=== PATIENT | female | born 1965 | race Caucasian/White ===

== ENCOUNTER 2024-09-17 21:22 | Emergency (ER) | payer OTHER, SELFPAY ==
[2024-09-17 21:38] VITALS: BP 111/74; PULSE 88; RESP 14; TEMP 36.7; O2SAT 96; BMI 25.0
[2024-09-18] MEDS: ondansetron 2 mg/ML SDV 2 mL 4 MG IVP (00:29)
[2024-09-18] MEDS: HYDROmorphone 0.5 MG/0.5 ML INJ 1 MG IVP (00:30)
[2024-09-18 00:39] VITALS: BP 117/95; PULSE 75; RESP 16; O2SAT 95
--- NOTE | 2024-09-18 01:19 | ED_ITS ---
HPI - Extremity Problem General: Chief complaint: Extremity Problem,Nontraumatic Stated complaint: post surgy yesterday, bleeding now doc sent Time Seen by Provider: 09/17/24 23:41 History of Present Illness: Nayeli presents to the emergency department for post-operative complications following surgery on her ankle. The patient reports that she underwent ankle surgery on evening, performed by Dr. Solitario, which involved pinning and plating. She was discharged home the same night. By friday, she began experiencing severe pain in both sides of her heels. The pain is described as burning and rubbing, causing significant discomfort. The patient contacted Dr. Solitario, who advised her to remove the splint if it was causing burning and pain. The patient notes that the surgical site is actively bleeding. She was instructed by Dr. Solitario to come to the ER for redressing of the wound. Nayeli expresses frustration that she was given splints instead of a post-operative boot, which she believes would have been more appropriate and potentially covered by insurance. The patient reports that the prescribed oxycodone is not adequately managing her pain. She describes being in so much pain and appears distressed. The pain is severe enough to impact her comfort and ability to relax. In addition to the pain, Nayeli mentions that she is recovering from bronchitis, which she has been experiencing for about two weeks. This information suggests a recent respiratory illness that may be relevant to her overall health status. Related Data Allergies Allergy/AdvReac Type Severity Reaction Status Date / Time No Known Allergies Allergy Verified 09/17/24 21:46 Physical Exam Const: COMMON NORMALS: no acute distress, patient oriented x3, healthy appearing, alert and well nourished HENMT: COMMON NORMALS: normocephalic HEAD & SCALP: normocephalic Eye: COMMON NORMALS: EOMs intact bilaterally Neck/C-Spine: COMMON NORMALS: full ROM and supple Resp: COMMON NORMALS: normal respiratory effort, No retractions and clear to auscultation bilaterally AUSCULTATION: clear to auscultation bilaterally Cardio: COMMON NORMALS: regular rate, regular rhythm, No gallops present (Cardio) and No murmurs present (Cardio) RATE: regular rate RHYTHM: regular rhythm GI: COMMON NORMALS: Soft to palpation and non-tender PALPATION: Yes Soft to palpation Extremity: GENERAL: Yes normal exam except as noted Neuro: COMMON NORMALS: patient oriented x3 SENSORIUM/ORIENTATION: Yes alert Skin: COMMON NORMALS: no petechiae LESIONS: lesion noted (Intact surgical lesions on either side of her left ankle with serosanguineo) OTHER: Mild skin breakdown over the heel that was sitting and saturated gauze. Course Vital Signs: Vital signs: Vital Signs Temperature 98.1 F 09/17/24 21:38 Pulse Rate 75 09/18/24 00:39 Respiratory Rate 16 09/18/24 00:39 Blood Pressure 117/95 09/18/24 00:39 Pulse Oximetry 95 09/18/24 00:39 Oxygen Delivery Me thod Room Air 09/18/24 00:39 MDM - Extremity (Nontraumatic) Medical Decision Making 59-year-old female presents to the emergency department for evaluation of her surgical wound. She is approximately 2 days status post ankle surgery. She was starting to have ankle and heel pain and was told to come to the emergency department by her orthopedic surgeon. Patient required Dilaudid for pain management prior to removing of the bandage. Bandage was removed and lateral incisions were noted covered in iodoform gauze. There was a very small amount of serosanguineous drainage coming from the lateral incision. The heel was starting to show some skin breakdown after sitting in blood saturated gauze. The wound was redressed with Telfa over the incisions and cast padding over the entire ankle and foot. Patient was given a walking boot and instructed to follow-up with orthopedic surgery on Friday. She is to change her bandage daily instructions were provided. All questions were answered and the patient and her agreed to discharge home. There was a discussion about prophylactic antibiotics. All were in agreement that they were not needed at this time. Leticia mendoza also requested an increase in her pain medication dosage. This provider encouraged her not to do a higher pain medicine as it could just mask a problem and deferred to the dosing regimen started by the surgeon. Patient was discharged home in good condition with return precautions. No radiology studies performed this visit Discharge Plan Discharge Patient Disposition: Home Clinical Impression: Surgical wound present, Skin breakdown Condition: Stable Discharge Orders: Discharge ED (Routine); Ordered 09/18/24 Ordered By: Jese Cevallos Referrals: Sal Rangel MD [Primary Care Provider] - Discharge Diet: Advance as tolerated Discharge Activity: Limit activity as instructed Patient Instructions: Opioid Safety, Pain Management Activity Restrictions/Additional Instructions: Please follow-up with orthopedic surgery on Friday for further wound management. Please return to the emergency department with any new or worsening symptoms. Print Language: Kittitian Coding Level of Care Code ED Shoe Shanker for Sherlyn Patterson
[2024-09-18 01:52] VITALS: BP 113/71; PULSE 71; RESP 16; O2SAT 94
== END 2024-09-18 01:54 | disposition home or self-care (01) ==
PROVIDERS: Emergency Provider General Practice; PCP Family Medicine
DX: T81.31XA Disruption of external operation (surgical) wound, not elsewhere classified, initial encounter (principal); X58.XXXA Exposure to other specified factors, initial encounter; Z98.890 Other specified postprocedural states
CPT/HCPCS: 96374; 96375; 99284; J1171; J2405